=== PATIENT | male | born 1975 | race Two or more races ===

== ENCOUNTER 2021-05-22 21:02 | Emergency (ER) | payer MEDICAID ==
[~2021-05-22] VITALS: Ht 185.4 cm; Wt 93.0 kg
--- NOTE | 2021-05-22 21:15 | NUR ---
[facility] S/P FALL FROM TWO WEEKS C/O RIGHT ARM PAIN AND RIGHT FOOT PAIN. PATIENT IS A/O X 4, RR EVEN AND UNLABORED, NO SOB NOTED, PATIENT CONNECTED TO CARDIAC MONIOTR AND POX.
[2021-05-22] MEDS ORDERED: IBUPROFEN 600 MG TABLET PO ONE (21:30)
[2021-05-22] MEDS ORDERED: IBUPROFEN 600 MG TABLET ONE (21:43)
--- NOTE | 2021-05-22 22:37 | NUR ---
SHOE SHANKER AT PT'S BEDSIDE
[2021-05-22] MEDS ORDERED: IBUP-1955 PO (23:14)
--- NOTE | 2021-05-23 00:13 | NUR ---
Patient discharged to home in stable condition. Rx and Written and verbal after care instructions given. Patient verbalizes understanding of instruction.
[2021-05-23 00:14] VITALS: BP 126/70
== END 2021-05-23 00:14 | disposition home or self-care (01) ==
LOC: ER 21:11
DX: S52.291A Other fracture of shaft of right ulna, initial encounter for closed fracture (principal); M79.671 Pain in right foot; W01.0XXA Fall on same level from slipping, tripping and stumbling without subsequent striking against object, initial encounter; Y93.89 Activity, other specified; Y92.89 Other specified places as the place of occurrence of the external cause; Y99.8 Other external cause status
CPT/HCPCS: 73060-TC; 73080-TC; 73630-TC